=== PATIENT | female | born 1965 | race Caucasian/White ===

== ENCOUNTER → 2019-04-05 11:08 | Outpatient (BNVA) | payer BC, SELFPAY | PROVIDERS: Family Provider Nurse Practitioner; Visit Provider Nurse Practitioner Family | DX: M25.562 Pain in left knee (principal); I10 Essential (primary) hypertension; F41.9 Anxiety disorder, unspecified; J44.9 Chronic obstructive pulmonary disease, unspecified; R91.1 Solitary pulmonary nodule; J43.9 Emphysema, unspecified; F17.200 Nicotine dependence, unspecified, uncomplicated | CPT/HCPCS: 73562; 80053; 80061; 84443; 85025 ==

== ENCOUNTER → 2019-07-05 15:36 | Outpatient (BNVA) | payer BC, SELFPAY | PROVIDERS: Family Provider Nurse Practitioner; Visit Provider Nurse Practitioner | DX: I10 Essential (primary) hypertension (principal) | CPT/HCPCS: 80053 ==

== ENCOUNTER 2020-05-26 16:23 | Emergency (ER) | payer BC, SELFPAY ==
[2020-05-26 16:32] VITALS: BP 157/95; PULSE 76; RESP 18; TEMP 36.8; O2SAT 100; BMI 20.5
--- NOTE | 2020-05-26 18:36 | ED_ITS ---
HPI - Neuro Symptoms/Deficit General: Chief Complaint: Neuro Symptoms/Deficit Stated Complaint: NEURO SYMPTOMS Time Seen by Provider: 05/26/20 18:19 Source: patient Mode of arrival: ambulatory Limitations: no limitations History of Present Illness: HPI Narrative: Patient is a 54-year-old female presents to ED today with a complaint of intermittent numbness feeling to the left side of her face. Patient tells me she initially began noticing symptoms approximately a week ago. She states she will have 1-2 episodes a day that last anywhere from 15 to 30 minutes. In between episodes she is completely asymptomatic. She denies pain. During episode she is not having any other symptoms such as slurred speech, trouble swallowing, facial drooping, numbness or tingling to her extremities. She is not having dental pain. She denies ear pain, tinnitus, hearing loss. She states pain affects mainly the middle of her face/maxillary region. Does not affect her jawline or forehead. She has not found any exacerbating or alleviating factors. Onset (ago): day(s) History of same: No Severity: mild Quality: tingling Relieving factors: none Exacerbating factors: none On Anticoagulants: No Associated symptoms: Reports no associated symptoms; Deny chest pain, nausea, vertigo or vomiting Treatments Prior to Arrival: none Review of Systems Const: Denies: fever(s) or chills Eyes: Denies: change in vision, blurry vision or photophobia ENMT: Denies: throat pain, uvular edema, odynophagia, hoarseness, ear or mastoid pain, ear discharge, change in hearing, tinnitus, disequilibrium, nasal discharge, nasal congestion, post nasal drip or sinus pain Card: Denies: chest pain Resp: Denies: dyspnea GI: Denies: nausea or vomiting Musc: Denies: neck pain Skin/Breast: Denies: rash Neuro: Denies: numbness in extremities, weakness in extremities, sensory changes, lack of coordination, difficulty walking, frequent falls, dizziness, vertigo, confusion, behavioral changes, Slurred speech present or difficulty communicating thoughts PFS ED PFSH: Medical History Anxiety COPD (chronic obstructive pulmonary disease) Essential hypertension Smoker Surgical History History of bilateral tubal ligation Family History Mother Diabetes Social History Smoking and tobacco status: current every day smoker Second hand smoke exposure: Yes Smoking risk assessment/counseling performed?: Yes Alcohol intake: current Alcohol intake frequency: few times a week Alcohol type: beer Desire information about alcohol rehabilitation?: No Counseling given: No Desire information about substance/drug rehabilitation?: No Counseling given: No Adopted: No Caregiver/support person: No Lives independently: Yes Household members: spouse Housing: House Marital status: service: No Current occupational status: employed Current occupation: [employer] History of recent travel: No Current gender identity: Female Physical Exam Const: COMMON NORMALS: no acute distress, average body habitus, patient oriented x3, no limitations, healthy appearing, alert and well nourished GENERAL APPEARANCE: cooperative ORIENTATION/CONSCIOUSNESS: Yes awake, Yes oriented to person, Yes oriented to place and Yes oriented to time HENMT: COMMON NORMALS: normocephalic, atraumatic, hearing grossly normal bilaterally, external ears normal, EAC's normal, TM's normal bilaterally, oropharynx normal and dentition normal HEAD & SCALP: normal to inspection, normocephalic and atraumatic FACE & SINUS: normal facial exam, sinuses nontender and face symmetric FACE & SINUS IMAGES: 1. pt complains of decreased sensation here when compared to R side; forehead, jawline, above lips, bridge of nose all feel normal per patient EXTERNAL EAR: Yes external ears normal EXTERNAL AUDITORY CANAL: EAC's normal TYMPANIC MEMBRANE: TM's normal bilaterally MOUTH: tongue normal; no audible dysphonia THROAT: uvula midline; no uvular edema Eye: COMMON NORMALS: Equal, round and reactive pupils present and EOMs intact bilaterally GENERAL EYE: appearance normal, both eyes and all related structures and normal light reflex PUPIL: Yes Equal, round and reactive pupils present DIRECT OPHTHALMOSCOPY: Yes normal light reflex OTHER: no nystagmus Neck/C-Spine: COMMON NORMALS: full ROM Neuro: MARTY COMA SCALE: document GCS findings Marty coma scale eye opening: Spontaneous [place] coma scale verbal response: Orientated Marty coma scale motor response: Obey commands [place] coma scale total score: 15 COMMON NORMALS: patient oriented x3, moves all extremities, no focal motor deficits, no sensory deficits noted and gait normal SENSORIUM/ORIENTATION: Yes alert, Yes oriented to person, Yes oriented to place and Yes oriented to time COORDINATION/BALANCE: [id number] test normal SPEECH: speech normal GAIT: Yes Normal gait present MOTOR EXAM: 5/5 motor strength present throughout COORDINATION: [id number] test normal Skin: COMMON NORMALS: no rashes or lesions noted GENERAL SKIN EXAM: no rashes or lesions noted Course Vital Signs: Vital signs: Vital Signs Temperature 98.2 F 05/26/20 16:32 Pulse Rate 76 05/26/20 16:32 Respiratory Rate 18 05/26/20 16:32 Blood Pressure 157/95 05/26/20 16:32 Pulse Oximetry 100 05/26/20 16:32 MDM - Neuro Symptoms/Deficit MDM Narrative: Medical decision making narrative: Patient's history and symptoms do not seem consistent with an ischemic posterior circulation/lateral medullary infarct event. Patient does not complain of dizziness/vertigo, she has no ataxia, no nystagmus on exam, no visual changes, she has no involvement of her trunk or extremities, she does not complain of decreased temperature sensation, she has a normal coronary reflex no dysphagia, no dysarthria or dysphonia. Recommend she follow up with her PCP next week for re-evaluation. Strict return to ED precautions given. Discharge Plan Discharge Patient Disposition: Home Clinical Impression: Facial paresthesia Condition: Stable Prescriptions: No Action amlodipine 5 mg tablet 5 mg PO DAILY 90 Days Qty: 90 RF: 3 hydrochlorothiazide 25 mg tablet 25 mg PO DAILY 90 Days Qty: 90 RF: 3 buspirone 15 mg tablet 15 mg PO BID 90 Days Qty: 180 RF: 3 acyclovir 200 mg capsule 200 mg PO TID Qty: 30 RF: 0 doxycycline hyclate [Vibramycin] 100 mg capsule 100 mg PO BID Qty: 24 RF: 0 albuterol sulfate [Ventolin HFA] 90 mcg/actuation HFA aerosol inhaler 2 puff INHALATION Q4H PRN (Reason: shortness of breath or wheezing) 30 Days Qty: 1 RF: 5 (DME) nebulizer accessories Kit See Rx Instructions .ROUTE .MEDSUPPLY Qty: 1 RF: 0 Discharge Orders: Discharge ED (Routine); Ordered 05/26/20 Ordered By: Cata Collins Referrals: Enoc Abreu FNP-C [Primary Care Provider] - Patient Instructions: Paresthesia (ED) Activity Restrictions/Additional Instructions: You may return to the emergency department for any facial drooping, slurred speech, numbness/tingling/weakness of your trunk or limbs, trouble swallowing or speaking, or any other concerns you may have. Otherwise please follow-up with your primary care provider. Coding Level of Care Code ED [employer] Specialist for Galilea Jennings
== END 2020-05-26 18:46 | disposition home or self-care (01) ==
PROVIDERS: Emergency Provider Physician Assistant; PCP Nurse Practitioner
DX: R20.2 Paresthesia of skin (principal); F17.200 Nicotine dependence, unspecified, uncomplicated; I10 Essential (primary) hypertension
CPT/HCPCS: 99282

== ENCOUNTER → 2020-05-31 10:47 | Outpatient (BNVA) | payer BC, SELFPAY | PROVIDERS: PCP Nurse Practitioner; Visit Provider Nurse Practitioner Family | DX: R20.2 Paresthesia of skin (principal); I10 Essential (primary) hypertension | CPT/HCPCS: 80053; 80061; 82607; 84443; 85025 ==

== ENCOUNTER → 2020-06-12 11:59 | Outpatient (BNVA) | payer BC, SELFPAY | PROVIDERS: PCP Nurse Practitioner; Visit Provider Orthopaedic Surgery | DX: Z01.812 Encounter for preprocedural laboratory examination (principal); Z20.822 Contact with and (suspected) exposure to COVID-19 | CPT/HCPCS: 87635 ==

== ENCOUNTER 2020-06-15 12:29 | Day surgery (SDC) | payer BC, SELFPAY ==
[2020-06-15 12:44] VITALS: BMI 19.9
[2020-06-15 12:53] VITALS: BP 157/102; PULSE 73; RESP 18; TEMP 36.4; O2SAT 99
[2020-06-15] MEDS: sodium chloride 0.9% 1,000 ML 30 ML IV (13:20)
--- NOTE | 2020-06-15 13:49 | ANES.PREANE2 ---
Pre-Anesthetic Assessment Pre-Anesthetic Assessment: Height/Weight: Height 1.63 m Weight 52.617 kg Temp Pulse Resp BP Pulse Ox 97.6 F 73 18 157/102 99 06/15/20 12:53 06/15/20 12:53 06/15/20 12:53 06/15/20 12:53 06/15/20 12:53 Preop Diagnosis: Trigger finger left ring finger Proposed Procedure: Operation Date: 06/15/20 14:10 Proposed Procedures p Trigger Finger Release left ring finger [id number] M65.342(Left) - Francois Martinez MD Familial anesthetic complications: None Was Beta Bety taken within 24 hours: N/A Was Clonidine taken within 24 hours: N/A Last intake: Intake Last Liquid Date 06/15/20 Last Liquid Time 09:00 Last Solid Date 06/14/20 Last Solid Time 19:30 Social: Social History: Tobacco and No alcohol Exam: Pre-Anes Outpt Exam: alert, oriented x 3, clear to auscultation bilaterally and regular rate & rhythm Airway: Cervical ROM: WNL MP: 2 Dentition: Full Pulmonary: Pulmonary: COPD CV/HEM: CV/HEM: HTN Anesthetic Plan: ASA status: 2 Anesthesia: MAC and Regional (specify below) (randall block) Risk of > 500 ml blood loss (7ml/kg in children): No Meds/Allergies Current Medications: Current Medications Generic Name Dose Route Start Last Admin Trade Name Freq PRN Reason Stop Dose Admin Sodium Chloride 1,000 mls @ 30 ml s/hr 06/15/20 13:00 06/15/20 13:20 Sodium Chloride 0.9% IV 06/16/20 12:59 30 mls/hr .Q24H DEEPIKA Administration PFSH Anesthesia PFSH: Medical History Anxiety COPD (chronic obstructive pulmonary disease) Essential hypertension Smoker Surgical History History of bilateral tubal ligation Family History Mother Diabetes Social History Smoking and tobacco status: current every day smoker Second hand smoke exposure: Yes Smoking risk assessment/counseling performed?: Yes Alcohol intake: current Alcohol intake frequency: few times a week Alcohol type: beer Desire information about alcohol rehabilitation?: No Counseling given: No Desire information about substance/drug rehabilitation?: No Counseling given: No Adopted: No Caregiver/support person: No Lives independently: Yes Household members: spouse Housing: House Marital status: service: No Current occupational status: employed Current occupation: [employer] History of recent travel: No Current gender identity: Female Data Anesthesia Cardiac Studies: No Data to Display
--- NOTE | 2020-06-15 14:25 | W.PM.OPSUD ---
Surgery/Procedure H&P Update DATE OF PROCEDURE: June 15, 2020 DATE H&P PERFORMED: 06/12/20 PREOP DIAGNOSIS: Trigger finger left ring finger PLANNED PROCEDURE: Operation Date: 06/15/20 14:10 Proposed Procedures p Trigger Finger Release left ring finger 21014 M65.342(Left) - Francois Martinez MD
--- NOTE | 2020-06-15 16:04 | PM.OP ---
Operative Report Date of procedure: June 15, 2020 Pre-op Diagnosis: Trigger finger left ring finger Post-op diagnosis: same Post-op Findings: Same Procedure Done: -year-old Pathology: none sent Surgeon: Francois Martinez Anesthesia: Nerve Block (Dee Dee block) Estimated blood loss (mL): 2 Tourniquet time (min): 20 Complications: None Findings: No abnormalities were seen in the flexor digitorum superficialis tendon of the ring finger Condition: stable Disposition: PACU Procedure: The patient's hand was prepped in the usual fashion. A timeout was performed. I transverse incision was made over the level of a 1 beatris in the palm over a distance of approximately a centimeter and a half. Under loupe magnification blunt dissection was accomplished down to the A1 beatris. With adequate visualization a scalpel was used to divide the central 8 mm of that structure. Blunt scissors were then used to extend the release approximately 5 mm proximally and 5 mm distally. Tendons were pulled the road and inspected to assure there health. Skin edges were infiltrated with 4 cc of 0.5%n Marcaine. The skin edges were closed with 3-0 Prolene compressive dressings were applied.
[2020-06-15 16:09] VITALS: BP 146/84; PULSE 61; RESP 16; TEMP 36.8; O2SAT 99
[2020-06-15 16:10] VITALS: BP 140/84; PULSE 62; RESP 16; O2SAT 98
[2020-06-15 16:21] VITALS: BP 147/73; PULSE 67; RESP 16; O2SAT 100
--- NOTE | 2020-06-15 16:26 | SUR.PHASEI ---
1620 PT AWAKE ALERT SITTING CROSSLEGGED IN THE BED DENIES PAIN AND NAUSEA, WANTS TO GO HOME VSS NO DISTRESS LT HAND BANDAGE D/I DISTAL FINGER PINK WARM PT STATES FEELING TO FINGERS BUT (KIND OF NUMB) PT MOVES FINGER OF LT HAND EASILY AND TO COMMAND. FINGERERS PINK WARM
[2020-06-15 16:37] VITALS: BP 155/93; PULSE 58; RESP 18; O2SAT 100
[2020-06-15] MEDS: HYDROcodone-acetaminophen 5-325 mg Tablet 1 TAB PO (16:43)
== END 2020-06-15 16:45 | disposition home or self-care (01) ==
PROVIDERS: PCP Nurse Practitioner; Visit Provider Orthopaedic Surgery
PROC: (CPT 26055; principal; 2020-06-15 14:00)
DX: M65.342 Trigger finger, left ring finger (principal); J44.9 Chronic obstructive pulmonary disease, unspecified; F17.210 Nicotine dependence, cigarettes, uncomplicated; I10 Essential (primary) hypertension; F41.9 Anxiety disorder, unspecified
CPT/HCPCS: 26055; J0690; J2250; J2405; J2704; J3010; J3490; J7030

== ENCOUNTER 2020-06-27 11:28 | Outpatient (CLI) | payer BC, SELFPAY ==
--- NOTE | 2020-06-27 11:45 | MR_ITS ---
WS: [id number] MRI BRAIN WITHOUT CONTRAST HISTORY: R20.2 - Paresthesia of skin COMPARISON: 09/13/2016 TECHNIQUE: Diffusion imaging, multiplanar T1, T2 and FLAIR imaging obtained. No evidence for acute infarct or hemorrhage. Romano-white matter differentiation is normal. Bilateral microvascular ischemic change in the cheryle. There is additional very minimal supraventricula r chronic white matter disease. No significant atrophy. No prior large territory infarct. Ventricles and extra-axial spaces are normal. No inferior displacement of cerebellar tonsils. The sella turcica and pituitary gland are unremarkabl e. Posterior fossa is also unremarkable. Dural venous sinuses and coquille of Graves demonstrate no abnormality on this unenhanced studies. Paranasal sinuses: Clear. Mastoid air cells: Normal. Calvarium and scalp: Intact. MR/MR head wo con* [id number] IMPRESSION: 1. Mild bilateral microvascular ischemic change in the cheryle and supratentorial white matter. 2. No significant atrophy or prior infarct.
== END 2020-06-27 11:29 | disposition home or self-care (01) ==
LOC: RADSHAW 11:31
PROVIDERS: PCP Nurse Practitioner; Visit Provider Nurse Practitioner Family
DX: R20.2 Paresthesia of skin (principal)
CPT/HCPCS: 70551

== ENCOUNTER → 2020-10-25 09:13 | Outpatient (BNVA) | payer BC, SELFPAY | PROVIDERS: PCP Nurse Practitioner; Visit Provider Nurse Practitioner Family | DX: M19.041 Primary osteoarthritis, right hand (principal); M19.042 Primary osteoarthritis, left hand | CPT/HCPCS: 85025; 85651; 86140; 86431 ==

== ENCOUNTER → 2020-11-08 09:16 | Outpatient (BNVA) | payer BC, SELFPAY | PROVIDERS: PCP Nurse Practitioner; Visit Provider Nurse Practitioner Family | DX: R79.89 Other specified abnormal findings of blood chemistry (principal) | CPT/HCPCS: 85025 ==

== ENCOUNTER → 2020-11-15 10:45 | Outpatient (BNVA) | payer BC, SELFPAY | PROVIDERS: Referring Provider Emergency Medicine Sports Medicine; Visit Provider Emergency Medicine Sports Medicine | DX: M79.641 Pain in right hand (principal); M79.642 Pain in left hand | CPT/HCPCS: 73130 ==

== ENCOUNTER 2021-01-24 12:13 | Outpatient (CLI) | payer BC, SELFPAY ==
[2021-01-24 12:28] VITALS: BP 152/88; PULSE 66; RESP 17; TEMP 36.8; O2SAT 99; BMI 19.7
[2021-01-24 13:20] VITALS: BP 149/82; PULSE 61; RESP 18; TEMP 36.8; O2SAT 99
[2021-01-24 14:20] VITALS: BP 152/89; PULSE 65; RESP 18; TEMP 36.6; O2SAT 99
== END 2021-01-24 12:14 | disposition home or self-care (01) ==
PROVIDERS: PCP Nurse Practitioner Family; Visit Provider Nurse Practitioner Family
DX: U07.1 COVID-19 (principal)
CPT/HCPCS: 96365

== ENCOUNTER → 2021-02-28 13:58 | Outpatient (BNVA) | payer BC, SELFPAY | PROVIDERS: PCP Nurse Practitioner Family; Visit Provider Nurse Practitioner Family | DX: M79.644 Pain in right finger(s) (principal); M25.552 Pain in left hip; W19.XXXA Unspecified fall, initial encounter; Y92.009 Unspecified place in unspecified non-institutional (private) residence as the place of occurrence of the external cause | CPT/HCPCS: 73130; 73502 ==

== ENCOUNTER 2021-07-23 14:09 | Outpatient (CLI) | payer BC, SELFPAY ==
--- NOTE | 2021-07-23 14:21 | MM_ITS ---
WS: [id number] BILATERAL 3D TOMOSYNTHESIS DIGITAL SCREENING MAMMOGRAPHY WITH CAD CLINICAL INFORMATION: SCREENING HISTORY: Screening mammogram. No current complaints. COMPARISON: February 18, 2018 TECHNIQUE: Bilateral CC and MLO views. FINDINGS: The breasts are composed of heterogeneous fibroglandular density tissue, which can limit the detectio n of small underlying mass lesions. Vascular calcification. No suspicious mass, asymmetry, calcificat ions, or architectural distortion. No evidence of malignancy. MM/[place] [id number] IMPRESSION: BI-RADS: 2-Benign FOLLOW UP: 1 Year Follow-up Recommend return to annual screening mammography.
== END 2021-07-23 14:10 | disposition home or self-care (01) ==
LOC: RADSHAW 14:12
PROVIDERS: PCP Nurse Practitioner Family; Visit Provider Nurse Practitioner Family
DX: Z12.31 Encounter for screening mammogram for malignant neoplasm of breast (principal)
CPT/HCPCS: 77063; 77067

== ENCOUNTER → 2021-09-24 10:19 | Outpatient (BNVA) | payer BC, SELFPAY | PROVIDERS: PCP Nurse Practitioner Family; Visit Provider Nurse Practitioner Family | DX: I10 Essential (primary) hypertension (principal) | CPT/HCPCS: 80053; 80061; 84443; 85025 ==

== ENCOUNTER → 2022-07-03 09:39 | Outpatient (BNVA) | payer OTHER, SELFPAY | PROVIDERS: PCP Nurse Practitioner Family; Visit Provider Nurse Practitioner Family | DX: I10 Essential (primary) hypertension (principal) | CPT/HCPCS: 73080; 80053; 80061; 84443; 85025 ==

== ENCOUNTER → 2022-07-23 09:00 | Outpatient (BNVA) | payer OTHER, SELFPAY | PROVIDERS: PCP Nurse Practitioner Family; Visit Provider Obstetrics & Gynecology | DX: Z12.4 Encounter for screening for malignant neoplasm of cervix (principal) | CPT/HCPCS: 87624 ==

== ENCOUNTER → 2022-07-25 11:39 | Outpatient (BNVA) | payer OTHER, SELFPAY | PROVIDERS: PCP Nurse Practitioner Family; Visit Provider Orthopaedic Surgery | DX: M79.641 Pain in right hand (principal); M19.041 Primary osteoarthritis, right hand | CPT/HCPCS: 73130 ==

== ENCOUNTER 2022-08-15 10:00 | Outpatient (CLI) | payer OTHER, SELFPAY ==
--- NOTE | 2022-08-15 | MM_ITS ---
WS: [id number] BILATERAL SCREENING DIGITAL TOMOSYNTHESIS MAMMOGRAM WITH CAD HISTORY: SCREENING COMPARISON: 07/23/2021, 02/18/2018 Bilateral CC and MLO views with tomosynthesis and synthetic mammography submitted. Computer aided det ection analyzed. Breast composition: The breasts are heterogeneously dense, which may obscure small masses. No suspici ous masses, microcalcifications or architectural distortion. Bilateral moderate breast arterial calci fication. MM/[place] [id number] IMPRESSION: BI-RADS: 2-Benign FOLLOW UP: 1 Year Follow-up
== END 2022-08-15 10:01 | disposition home or self-care (01) ==
PROVIDERS: PCP Nurse Practitioner Family; Visit Provider Nurse Practitioner Family
DX: Z12.31 Encounter for screening mammogram for malignant neoplasm of breast (principal)
CPT/HCPCS: 76830; 77063; 77067

== ENCOUNTER 2022-10-24 09:07 | Day surgery (SDC) | payer OTHER, SELFPAY ==
[2022-10-23 15:57] VITALS: BMI 18.7
--- NOTE | 2022-10-24 | XR_ITS ---
WS: [id number] C ARM fluoroscopy views of the right fifth finger, 10/24/2022 Clinical Data: right middle finger trigger release. Comparison: Right hand, 07/25/2022 Findings: Dr. Menjivar inserted an orthopedic pin to fuse the DIP joint of the right fifth finger. Impression: Fusion of right fifth finger DIP joint.
[2022-10-24 09:49] VITALS: BP 164/92; PULSE 66; RESP 16; TEMP 36.7; O2SAT 100
[2022-10-24 10:01] VITALS: BMI 18.8
[2022-10-24] MEDS: sodium chloride 0.9% 1,000 ML 30 ML IV (10:06)
[2022-10-24] MEDS: acetaminophen 1,000 MG/100 ML PIGGYBACK 400 MG IV (10:06)
[2022-10-24] MEDS: ketorolac 30 mg/mL INJ IVP (10:06)
--- NOTE | 2022-10-24 10:25 | ANES.PREANE2 ---
Pre-Anesthetic Assessment Height/Weight: Height 1.63 m Weight 49.895 kg Temp Pulse Resp BP Pulse Ox O2 Del Method 98.1 F 66 16 164/92 100 Room Air 10/24/22 09:49 10/24/22 09:49 10/24/22 09:49 10/24/22 09:49 10/24/22 09:49 10/24/22 09:51 Preop Diagnosis: right middle finger trigger, right small finger chronic mallet,left tennis Operation Date: 10/24/22 11:15 Proposed Procedures p right middle finger trigger release, right small finger DIP arthrodesis, left elbow lateral epicondylitis cortisone injection. ??[id number], 55674,M65.331,M20.011(Right) - Tim Menjivar DO s Cortisone Injection(Left) - Tim Menjivar DO Familial anesthetic complications: none Was Beta Bety taken within 24 hours: N/A Was Clonidine taken within 24 hours: N/A Last intake: Intake Last Liquid Date 10/23/22 Last Liquid Time 22:00 Last Solid Date 10/23/22 Last Solid Time 22:00 Social Tobacco and No alcohol Exam alert, oriented x 3, clear to auscultation bilaterally and regular rate & rhythm Airway Mallampati: Class II Dentition: full Pulmonary Chronic Obstructive Pulmonary Disease CV/HEM Hypertension Anesthetic Plan ASA status: 3 Anesthesia: MAC Risk of > 500 ml blood loss (7ml/kg in children): No Medications/Allergies Home Medications Medication Instructions Recorded Confirmed Last Taken Type albuterol sulfate 2.5 mg/3 mL 2.5 mg (3 mL) inhalation Q4H PRN 01/23/21 10/23/22 Unknown Rx (0.083 %) solution for nebulization shortness of breath or wheezing #75 mL budesonide 1 mg/2 mL suspension 1 mg (2 mL) inhalation BID 30 days 01/23/21 10/23/22 Unknown Rx for nebulization #120 mL compresser nebulizer #1 ea 01/25/21 09/24/22 Unknown Rx albuterol sulfate 90 mcg/actuation 2 puff inhalation Q4H PRN 08/24/21 10/23/22 Unknown Rx aerosol inhaler (Ventolin HFA) shortness of breath or wheezing 30 days #1 ea meloxicam 15 mg tablet 15 mg PO DAILY #90 tabs 08/01/22 10/23/22 10/22/22 Rx ondansetron 4 mg disintegrating 4 mg PO Q8H PRN nausea and 10/24/22 Unknown Rx tablet vomiting 3 days #9 tabs tramadol 50 mg tablet 50 mg PO Q6H PRN pain #20 tabs 10/24/22 Unknown Rx Allergies Allergy/AdvReac Type Severity Reaction Status Date / Time No Known Allergies Allergy Verified 09/24/22 11:24 Current Medications Generic Name Dose Route Start Last Admin Trade Name Freq PRN Reason Stop Dose Admin Sodium Chloride 1,000 mls @ 30 mls/hr 10/24/22 09:45 10/24/22 10:12 Sodium Chloride 0.9% IV 10/25/22 09:44 30 mls/hr .Q24H DEEPIKA Infusion PFSH Anesthesia Medical History Anxiety COPD (chronic obstructive pulmonary disease) Essential hypertension Smoker Surgical History History of bilateral tubal ligation Family History Mother Diabetes Social History Smoking and tobacco status: current every day smoker Second hand smoke exposure: Yes Smoking risk assessment/counseling performed?: Yes Alcohol intake: current Alcohol intake frequency: few times a week Alcohol type: beer Desire information about alcohol rehabilitation?: No Counseling given: No Substance/Drug Use: unknown Desire information about substance/drug rehabilitation?: No Counseling given: No Adopted: No Caregiver/support person: No Lives independently: Yes Household members: spouse Housing: House Marital status: service: No Current occupational status: employed Current occupation: [employer] Do you think of yourself as: Straight/Heterosexual Current gender identity: Female Data Anesthesia Cardiac Studies: No Data to Display
--- NOTE | 2022-10-24 10:25 | W.PM.OPSUD ---
Surgery/Procedure H&P Update DATE OF PROCEDURE: October 24, 2022 DATE H&P PERFORMED: 09/24/22 CHANGES TO PREVIOUS DOCUMENTATION: None. No change in HPI visit from 09/24/2022. 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 She is failed conservative treatment through shared decision making she elects proceed with surgical intervention all questions answered at this time. 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 ??[id number], [id number],M65.331,M20.011(Right) - DO eduard Viera Cortisone Injection(Left) - Tim Menjivar DO
[2022-10-24] MEDS: ceFAZolin 2,000 MG in sodium chloride 0.9% (plus) 50 ML 100 MG IV (10:47)
[2022-10-24] MEDS: triamcinolone 40 mg/mL SDV 20 MG INJECTION (11:02)
[2022-10-24] MEDS: BUPivacaine 0.5% INJ 10 mL 5.5 ML INJECTION (11:02)
[2022-10-24] MEDS: ROPivacaine 0.5% SDV 30 mL 25 MG INJECTION (11:03)
[2022-10-24 12:15] VITALS: BP 129/90; PULSE 66; RESP 16; TEMP 36.2; O2SAT 96
--- NOTE | 2022-10-24 12:18 | P.OP_ITS ---
Brief Operative Note Date of procedure: 10/24/22 Pre-op diagnosis: Right middle finger trigger, right small finger DIP arthriti s/chronic malle Post-op diagnosis: same (, Left elbow lateral epicondylitis) Procedure Done: Right middle finger trigger release Right small finger DIP (distal interphalangeal joint) open arthrodesis Left elbow lateral epicondylitis cortisone injection Surgeon: Tim Menjivar Estimated blood loss (mL): 2 Complications: None Post-op Plan: Patient taken to PACU in stable condition recovering well pain controlled. Patient will receive appropriate discharge instructions as well as pain medication postoperatively. Patient to follow-up in orthopedic office in 2 weeks. Patient understands agrees with current plan. Questions answered. Condition: stable Disposition: same day Coding Level of Care Code Acute Code for Galilea Jennings
--- NOTE | 2022-10-24 12:18 | P.OP_ITS ---
Operative Report Date of procedure: October 24, 2022 Surgeon: Tim Menjivar DO Procedure: Post-op diagnosis: Same Procedure done: Right middle finger?trigger?release Right small finger DIP joint (distal interphalangeal) open arthrodesis Left elbow lateral epicondylitis cortisone injection Surgeon: Tim Menjivar DO Implants: [place] headless compression screw 2.5 mm partially-threaded cannulated Estimated blood loss: 2cc Tourniquet time 45 mins Complications: None Condition: stable Disposition: same day Brief History: Patient's been seen and worked up in the outpatient setting and findings consist ent with preoperative diagnosis of right middle finger?trigger, 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 Patient is failed conservative treatment.? Continues to have mechanical locking and catching.? Severe pain as well.? She also has significant pain and difficulty with her deformity of her small finger. Given her lateral epicondylitis she would like to have an injection while she is under anesthesia given this is her next best step in treatment option. We talked about treatment options nonoperative versus operative intervention.? ?Patient understands the risk benefits complication alternatives of surgical nonsurgical treatment options.? Understanding patient risks with surgery patient elects proceed with surgical intervention.? Consent obtained in the office.? Here today to proceed with surgical intervention.? All questions answered. Procedure: Patient was seen and evaluated in the preoperative holding area.? Consent was reviewed and signed with patient.? Seen evaluated by Anesthesia Department.? Once cleared for surgery was brought back to the operative suite.? Kept On [facility] and in supine position.? Patient's right arm was then placed to the armboard.? A nonsterile tourniquet applied to the right upper arm.? Patient's right upper extremity was then prepped and draped in standard orth opedic fashion.? Final timeout performed.? Patient received appropriate preoperative antibiotics. Esmarch tourniquet was used exsanguinate the right upper extremity tourniquet insufflated to 250 mmHg. Under sterile aseptic technique local digital block was performed to the right middle finger and right small finger. once appropriately anesthetized a standard oblique incision was made centering over the A1 beatris ? Sharp scalpel incision was made only through skin and then switched to Littler dissection scissors and spread longitudinally directly over the flexor tendon sheath.? I then mobilized both radially and ulnarly and Kasdan retractors were used and placed by my assistant to the vice president to protect neurovascular bundle.? Next I visualized the A1 beatris and this was incised with a scalpel.? I then switched to dissection scissors and released the A1 beatris both proximally as well as distally to its entirety.? Significant tendon sheath fluid was noted consistent with inflammation.? no complete tear noted of tendons.? At this point I utilized a rag nail and pulled the tendons FDS and FDP out of the incision and no?triggering was noted.? I then had anesthesia wake up the patient and patient was able to actively flex and extend and visualize his hand and try to make his finger trigger but there was no evidence of recurrent triggering.? Patient had smooth range of motion of flexion extension and significant improvement in his finger range of motion.? This point thorough irrigation was performed. Patient was then placed back to sleep by anesthesia and then turned my attention towards the right small finger DIP arthrodesis. Under fluoroscopic imaging I attempted to perform a reduction following flexion deformity of roughly 60 degrees. I was unable to achieve a full extension or mobilization and as result plan for a open procedure I performed a standard H incision over the DIP joint. Sharp scalpel incision was made through skin only I then utilizing my dissection with a scalpel mobilize full-thickness skin flaps then identified the extensor tendon mechanism. This was then subsequently debrided and entered into the DIP joint. Once I saw the DIP joint I then utilized a Ranger to release the volar aspect of the DIP joint to allow for appropriate mobilization. At this point in time I then had direct visualization of the joint and in preparation of the joint space utilized a rongeur to remove all excess cartilage which there was not of note minimal and there was a significant amount of eburnated arthritic bone noted. Once the joint surface was then prepped and ready for arthrodesis I utilized a K wire in antegrade fashion through the DIP joint while then subsequently retrograde fashion pinning the K wire into the base of the middle phalanx while maintaining reduction of the DIP joint. I then took an appropriate measurement I utilized structures headless compression screws. I utilized 2.5mm this was the smallest size and amenable for excellent fixation of the DIP joint. Once appropriate measurement was then subsequently made, I then utilized the cannulated drill to drill across the joint and subsequently took appropriate measured 2.5 mm cannulated headless compression screw of Nolio[employer] and advanced this under fluoroscopic imaging which had excellent joint compression for arthrodesis as well as excellent stability. The finger was maintained in good clinical position gnosis noted to have excellent tenodesis with no significant malrotation deformity noted. Small finger DIP was in satisfactory arthrodesis position. Screw had excellent purchase and fixation I then took the finger through range of motion alive under fluoroscopic imaging there is no evidence of periprosthetic fracture noted associated with the screw. Patient had full motion of the PIP and MP joint. This completed my DIP arthrodesis and subsequently tourniquet was deflated hemostasis was satisfactory. Thorough irrigation was then performed..? I then subsequently closed the incisions with interrupted nylon suture.? Xeroform 4 x 4's, Kerlix and an Soham wrap was applied for a bulky soft dressing and splint applied.? While still under anesthesia I then loaded under sterile aseptic technique a left elbow cortisone injection for left elbow lateral epicondylitis this was then marked out and patient underwent a left elbow lateral epicondylitis cortisone injection under sterile aseptic technique that any issues Band-Aid was then applied. Patient was then subsequently awakened from anesthesia and taken to PACU in stable condition tolerated procedure without issues. Disposition: Patient taken back in stable condition recovering well.? Patient will receive appropriate discharge instruction as well as pain medication postoperatively.? Patient to follow-up with me in the office in 2 weeks for repeat evaluation and incision check. Patient to be nonweightbearing to the right upper extremity.? Patient understands that any questions or concerns and contact the office.? All questions answered.
[2022-10-24 12:20] VITALS: BP 161/104; PULSE 64; RESP 16; O2SAT 100
[2022-10-24 12:25] VITALS: BP 184/104; PULSE 61; RESP 16; O2SAT 98
[2022-10-24 12:29] VITALS: BP 167/92; PULSE 65; RESP 16; TEMP 36.6; O2SAT 100
[2022-10-24 13:01] VITALS: BP 167/91; PULSE 69; RESP 17; TEMP 36.6; O2SAT 100
--- NOTE | 2022-10-24 13:15 | ANE.PACU2 ---
Inpatient post-anesthesia follow up: Airway intact: Yes Vital signs: Temperature 97.8 F Pulse Rate 69 Respiratory Rate 17 Blood Pressure 167/91 Pulse Oximetry 100 Oxygen Delivery Me thod Room Air Oxygen Flow Rate Fraction of Inspir ed Oxygen Hydration adequate: Yes Nausea and vomiting: No Pain level: 1 Mental status: Baseline
== END 2022-10-24 13:16 | disposition home or self-care (01) ==
PROVIDERS: PCP Nurse Practitioner Family; Visit Provider Student in an Organized Health Care Education/Training Program
PROC: (CPT 26055; principal; 2022-10-24 11:05)
PROC: (CPT 96372; 2022-10-24 11:05)
DX: M65.331 Trigger finger, right middle finger (principal); M13.841 Other specified arthritis, right hand; F41.9 Anxiety disorder, unspecified; J44.9 Chronic obstructive pulmonary disease, unspecified; I10 Essential (primary) hypertension; F17.210 Nicotine dependence, cigarettes, uncomplicated
CPT/HCPCS: 26055; 26860; 96372; 73140; 76000; C1713; J0131; J0690; J1885; J2250; J2704; J2795; J3301; J3490; J7030

== ENCOUNTER → 2022-11-12 15:15 | Outpatient (BNVA) | payer OTHER, SELFPAY | PROVIDERS: PCP Nurse Practitioner Family; Visit Provider Student in an Organized Health Care Education/Training Program | DX: M65.331 Trigger finger, right middle finger (principal); M77.12 Lateral epicondylitis, left elbow | CPT/HCPCS: 73130 ==

== ENCOUNTER 2022-11-26 10:01 | Outpatient (RCR) | payer OTHER, SELFPAY | END 2022-12-17 23:59 | disposition home or self-care (01) | LOC: SOT 10:01 | PROVIDERS: PCP Nurse Practitioner Family; Visit Provider Student in an Organized Health Care Education/Training Program | DX: M65.331 Trigger finger, right middle finger (principal) | CPT/HCPCS: 97022; 97110; 97140; 97165; 97530 ==

== ENCOUNTER → 2022-12-24 10:10 | Outpatient (BNVA) | payer OTHER, SELFPAY | PROVIDERS: PCP Nurse Practitioner Family; Visit Provider Student in an Organized Health Care Education/Training Program | DX: M65.331 Trigger finger, right middle finger (principal); M77.10 Lateral epicondylitis, unspecified elbow | CPT/HCPCS: 73130 ==

== ENCOUNTER 2022-12-24 10:40 | Outpatient (RCR) | payer OTHER, SELFPAY | END 2023-01-16 23:59 | disposition home or self-care (01) | LOC: SOT 10:40 | PROVIDERS: PCP Nurse Practitioner Family; Visit Provider Student in an Organized Health Care Education/Training Program | DX: M20.011 Mallet finger of right finger(s) (principal); Z47.89 Encounter for other orthopedic aftercare | CPT/HCPCS: 97022; 97110; 97140 ==

== ENCOUNTER → 2024-03-23 11:07 | Outpatient (BNVA) | payer OTHER, SELFPAY | PROVIDERS: PCP Nurse Practitioner Family; Visit Provider Physician Assistant | DX: M23.307 Other meniscus derangements, unspecified meniscus, left knee (principal); M25.562 Pain in left knee; M77.11 Lateral epicondylitis, right elbow | CPT/HCPCS: 73080; 73560; 73565 ==

== ENCOUNTER 2024-03-30 11:43 | Outpatient (CLI) | payer OTHER, SELFPAY ==
--- NOTE | 2024-03-30 11:40 | MM_ITS ---
WS: [id number] BILATERAL 3D TOMOSYNTHESIS DIGITAL SCREENING MAMMOGRAM WITH CAD CLINICAL INFORMATION: Z12.39 - Encounter for other screening for malignant neop... HISTORY: Screening mammogram. No current complaints. COMPARISON: 2022 TECHNIQUE: Bilateral CC and MLO. FINDINGS: The breast are composed of extremely dense tissue, which can limit the detection of small underlying mass lesions. No suspicious focal mass, asymmetry, calcifications, or architectural distortion. No evidence of malignancy. Vascular calcification. A few incidental punctate calcifications. MM/MM [facility] tomosynthesis [id number] IMPRESSION: DENSITY: The breasts are extremely dense, which lowers the sensitivity of mammo graphy. BI-RADS: 2 - Benign FOLLOW UP: 1 Year Follow-up Recommend return to annual screening mammography.
== END 2024-03-30 11:44 | disposition home or self-care (01) ==
PROVIDERS: PCP Clinical Nurse Specialist Adult Health; Visit Provider Clinical Nurse Specialist Adult Health
DX: Z12.31 Encounter for screening mammogram for malignant neoplasm of breast (principal); R92.343 Mammographic extreme density, bilateral breasts; R92.1 Mammographic calcification found on diagnostic imaging of breast; M17.12 Unilateral primary osteoarthritis, left knee; J43.9 Emphysema, unspecified; E78.00 Pure hypercholesterolemia, unspecified; I10 Essential (primary) hypertension
CPT/HCPCS: 77063; 77067; 80053; 80061; 82306; 82607; 84443; 85025

== ENCOUNTER 2024-06-28 12:04 | Outpatient (CLI) | payer OTHER, SELFPAY ==
--- NOTE | 2024-06-28 12:15 | MR_ITS ---
WS: [id number] MRI LEFT KNEE NONCONTRAST TECHNIQUE: Axial PD, coronal PD fat sat, coronal PD, sagittal PD, and sagittal PD fat-sat images obtained. CLINICAL INFORMATION: left knee derangement COMPARISON: None. FINDINGS: Distal quadriceps and patella tendons are intact. Hypertrophic patella. Small suprapatellar effusion. Mild chondromalacia patella. Medial and lateral patella retinaculum appear intact. ACL and PCL appear intact. Normal lateral meniscus. Horizontal tear involving the posterior horn medial meniscus extending to the articular surface. Normal popliteal fossa. Lateral collateral ligament is intact. Medial collateral ligament. Normal popliteus. MR/MR knee LT wo con* [id number] IMPRESSION: 1. Horizontal tear posterior horn medial meniscus extending to the articular s urface. 2. ACL and PCL are intact. 3. Medial and lateral collateral ligaments are intact. 4. Mild chondromalacia patella. 5. Small suprapatellar effusion. 6. No other acute findings. Outbridge grading:
== END 2024-06-28 12:05 | disposition home or self-care (01) ==
LOC: RAD 12:05
PROVIDERS: PCP Clinical Nurse Specialist Adult Health; Visit Provider Physician Assistant
DX: M25.562 Pain in left knee (principal); M17.12 Unilateral primary osteoarthritis, left knee; M22.42 Chondromalacia patellae, left knee
CPT/HCPCS: 73721

== ENCOUNTER → 2024-09-28 10:31 | Outpatient (BNVA) | payer OTHER, SELFPAY | PROVIDERS: PCP Clinical Nurse Specialist Adult Health; Visit Provider Physician Assistant | DX: M75.42 Impingement syndrome of left shoulder (principal); G56.22 Lesion of ulnar nerve, left upper limb; G56.02 Carpal tunnel syndrome, left upper limb | CPT/HCPCS: 73030 ==